=== PATIENT | male | born 1985 | race Caucasian/White ===

== ENCOUNTER 2017-04-10 12:33 | Emergency (ER) | payer MEDICAID, OTHER ==
[~2017-04-10] VITALS: Ht 182.9 cm; Wt 111.1 kg
[2017-04-10 14:26] VITALS: BP 150/92
[2017-04-10] MEDS ORDERED: KETOROLAC TROMETH 60MG/2ML VIAL IM ONE (14:45)
== END 2017-04-10 16:14 | disposition home or self-care (01) ==
LOC: ER 12:37
DX: S52.121A Displaced fracture of head of right radius, initial encounter for closed fracture (principal); S52.611A Displaced fracture of right ulna styloid process, initial encounter for closed fracture; S93.401A Sprain of unspecified ligament of right ankle, initial encounter; Z88.1 Allergy status to other antibiotic agents; Z88.6 Allergy status to analgesic agent; W17.89XA Other fall from one level to another, initial encounter; Y93.89 Activity, other specified; Y99.8 Other external cause status; Y92.89 Other specified places as the place of occurrence of the external cause
CPT/HCPCS: 29105; 70450; 73070; 73110; 73120; 73610; 96372; 99284; J1885

== ENCOUNTER → 2017-08-04 | Outpatient (CLI) | payer OTHER | END | disposition home or self-care (01) | LOC: LAB 13:45 | PROVIDERS: ATTEND Preventive Medicine Preventive Medicine/Occupational Environmental Medicine | DX: Z02.1 Encounter for pre-employment examination (principal); I25.10 Atherosclerotic heart disease of native coronary artery without angina pectoris | CPT/HCPCS: 36415; 86706; 86735; 86762; 86765; 86787 ==

== ENCOUNTER 2018-10-04 13:22 | Emergency (ER) | payer MEDICAID, OTHER ==
[~2018-10-04] VITALS: Ht 157.5 cm; Wt 2.7 kg
[2018-10-04 13:57] VITALS: BP 160/91
[2018-10-04] MEDS ORDERED: HYDROcodone-ACET 10/325MG TAB PO ONE (14:15)
== END 2018-10-04 15:33 | disposition home or self-care (01) ==
LOC: EDBD 13:22 → ER 13:22 → EDUNIT# 13:22 → ER 15:33
DX: S00.83XA Contusion of other part of head, initial encounter (principal); M25.571 Pain in right ankle and joints of right foot; Z88.6 Allergy status to analgesic agent; V43.52XA Car driver injured in collision with other type car in traffic accident, initial encounter; Y93.89 Activity, other specified; Y99.8 Other external cause status; Y92.410 Unspecified street and highway as the place of occurrence of the external cause
CPT/HCPCS: 70450; 73610

== ENCOUNTER 2018-11-11 10:26 | Emergency (ER) | payer SELFPAY ==
[~2018-11-11] VITALS: Ht 182.9 cm; Wt 111.1 kg
[2018-11-11 10:44] VITALS: BP_SYST 93
[2018-11-11] MEDS ORDERED: IBUPROFEN 800 MG TAB PO ONE (12:00)
== END 2018-11-11 12:21 | disposition home or self-care (01) ==
LOC: ER 10:26
DX: S92.351D Displaced fracture of fifth metatarsal bone, right foot, subsequent encounter for fracture with routine healing (principal); Z88.6 Allergy status to analgesic agent; X58.XXXD Exposure to other specified factors, subsequent encounter
CPT/HCPCS: 29515; 73630